=== PATIENT | female | born 1935 | race Caucasian/White ===

== ENCOUNTER 2016-10-03 12:47 | Emergency (ER) | payer OTHER ==
[~2016-10-03] VITALS: Ht 172.7 cm; Wt 78.6 kg
[~2016-10-03 12:47] MED LIST: 50+ ADULT EYE1 EACH PO; ALPHAGAN P100 DROP/5 BOTH EYES; AMBIEN10 MG PO; AMITRIPTYLINE H10 MG; BENGAY ULTRA S113 GM TP; BRIMONIDINE TAR10 ML BOTH EYES; CLOPIDOGREL75 MG; COENZYME Q10100 M1 PO; COQ-10100 MG PO; CRANBERRY-VITAMIN C; Cardizem CD,Cartia XT,Tiazac PO; DIGOXIN125 MCG; DILTIAZEM 24HR240 MG PO; ELAVIL10 MG PO; ELIQUIS5 MG PO; ERGOCALCIF50000 UNIT PO; EYE OMEGA ADVA1 EACH PO; Elavil PO; FLECAINIDE ACE100 MG PO; GLUCOSAMINE &1 EAC1 PO; LEVOTHYROXINE88 MCG; LEVOTHYROXINE88 MCG PO; LOMOTIL TABLET1 EACH PO; LOPRESSOR50 MG PO; Lanoxin,Digitek PO; Levothroid,Synthroid PO; Lopressor PO; METOPROLOL TART25 MG PO; MOVE FREE1 CAPSULE PO; NABUMETONE750 MG PO; PRAVASTATIN SOD40 MG PO; Plavix PO; RELAFEN750 MG; Relafen PO; TAMBOCOR100 MG PO; ZETIA10 MG; ZETIA10 MG PO
[2016-10-03 14:51] LABS: BASOPHIL COUNT 0.1 K/uL (0-0.1); EOSINOPHIL (%) 3.8 % (0-5); EOSINOPHIL COUNT 0.4 K/uL (0-0.3); IMMATURE GRANULOCYTE (%) 0.3 % (0.0-0.7); IMMATURE GRANULOCYTE COUNT 0.3 K/uL; LYMPHOCYTE COUNT 2.1 K/uL (1.0-2.8); MONOCYTE (%) 8.7 % (3-12); MONOCYTE COUNT 0.8 K/uL (0-0.8); NEUTROPHIL COUNT 5.8 K/uL (1.8-6.4)
[2016-10-03 14:59] LABS: CHLORIDE 109 mEq/L (99-109); POTASSIUM 4.6 mEq/L (3.7-5.4); SODIUM 142 mEq/L (136-147)
[2016-10-03 15:01] LABS: GLUCOSE 85 mg/dL (70-99); INTER. NORMALIZED RATIO 1.1; PROTHROMBIN TIME 10.9 (9.2-11.2)
[2016-10-03 15:02] LABS: ANION GAP 8 MEQ/L (2-14)
[2016-10-03 15:05] LABS: GFR ESTIMATE (CALCULATED) > 59 mL/min/
[2016-10-03 15:06] LABS: UREA NITROGEN (BUN) 17 mg/dL (9-23)
[2016-10-03 15:08] LABS: HEMATOCRIT 41.2 % (36.0-46.0); MCH 29.2 PG (29.0-34.0); MCV 88.6 FL (83-99); RBC DIS.WIDTH-CV 13.4 % (11.8-14.6); RBC DIS.WIDTH-SD 42.6 % (39-53); RED BLOOD COUNT 4.65 M/uL (3.80-5.20); WHITE BLOOD COUNT 9.1 K/uL (4.1-10.2)
[2016-10-03 15:41] LABS: MEAN PLAT.VOLUME 12.9 uM^3 (9.5-12.4); PLAT.SUFFICIENCY ADEQUATE; PLATELET COUNT 214 K/uL (156-360); USER ID LYM
[2016-10-03 16:37] VITALS: BP 134/77
== END 2016-10-03 16:40 | disposition home or self-care (01) ==
LOC: EME 12:47 → EXP 12:47
PROVIDERS: Emergency Medicine
PROC: 3E0234Z Introduction of Serum, Toxoid and Vaccine into Muscle, Percutaneous Approach (ICD-10-PCS; principal; 2016-10-03)
DX: S06.0X9A Concussion with loss of consciousness of unspecified duration, initial encounter (principal); S01.81XA Laceration without foreign body of other part of head, initial encounter; S00.83XA Contusion of other part of head, initial encounter; S60.222A Contusion of left hand, initial encounter; W18.30XA Fall on same level, unspecified, initial encounter; Z23 Encounter for immunization; E78.5 Hyperlipidemia, unspecified; Z88.0 Allergy status to penicillin
CPT/HCPCS: 70450; 73110; 73130; 73502; 80048; 85025; 85610; 85730; 99281; 99284